=== PATIENT | female | born 1975 | race Caucasian/White ===

== ENCOUNTER → 2016-06-05 | Outpatient (CLI) | payer OTHER ==
--- NOTE | 2016-06-05 16:22 | US ---
EXAMINATION TYPE: US thyroid st tissue head/neck DATE OF EXAM: 06/05/2016 3:34 PM COMPARISON: 07/21/2015 CLINICAL HISTORY: 40-year-old female C73 Malignant neoplasm of thyroid gland. Left lobe surgically re moved in 2010; known right nodules. TECHNIQUE: Multiple sonographic images of the thyroid gland are obtained. FINDINGS: GLAND SIZE: Right Lobe: 5.7 x 1.4 x 2.0 cm Overall Parenchyma: homogenous Left Lobe: Surgically absent Isthmus: Surgically absent NODULES RIGHT: # of nodules measured on right: 2 1. 0.5 x 0.4 x 0.5cm isoechoic solid nodule at the lower pole posteriorly blends with surrounding tis carlos. This nodule is wider than tall and shows some peripheral vascularity. prior size: 0.6 x 0.5 x 0.6 cm 2. 0.4 X 0.2 x 0.3 cm small hypoechoic nodule at the upper pole anteriorly with well-defined margins . This nodule is wider than tall and shows no intranodular vascularity. Prior size: no seen on prior scan Bilateral neck scanned, no abnormal lymphadenopathy noted. IMPRESSION: 1. Status post left thyroidectomy. 2. An isoechoic 5 mm solid nodule at the right lower pole is stable. 3. Tiny 4 mm circumscribed nodule in the right upper lobe is new. Follow-up as indicated.
[2016-06-06 15:06] LABS: Mis test requested (Blood) Thyroglobulin Ab Pnl
== END ==
LOC: RADUSWWP 15:11
PROVIDERS: ATTEND Internal Medicine Endocrinology, Diabetes & Metabolism
DX: C73 Malignant neoplasm of thyroid gland (principal); E04.2 Nontoxic multinodular goiter; E89.0 Postprocedural hypothyroidism; E04.1 Nontoxic single thyroid nodule
CPT/HCPCS: 76536; 84432; 84439; 84443; 86800

== ENCOUNTER → 2017-07-16 | Outpatient (CLI) | payer OTHER ==
[2017-07-16 14:37] LABS: T4, Free (Free Thyroxine) 1.44 ng/dL (0.78-2.19)
[2017-07-16 20:50] LABS: Thyroglobulin 9.35 ng/mL (1.60-59.90)
== END | disposition home or self-care (01) ==
LOC: LABWHC1 13:37
PROVIDERS: ATTEND Internal Medicine Endocrinology, Diabetes & Metabolism
DX: C73 Malignant neoplasm of thyroid gland (principal); E04.1 Nontoxic single thyroid nodule
CPT/HCPCS: 36415; 84432; 84439; 84443; 86800

== ENCOUNTER → 2017-09-24 | Outpatient (CLI) | payer OTHER ==
--- NOTE | 2017-09-24 15:26 | US ---
EXAMINATION TYPE: US thyroid st tissue head/neck DATE OF EXAM: 09/24/2017 COMPARISON: CLINICAL HISTORY: C73 thyroid cancer. Hx of thyroid cancer with left lobe removed. Hx of right thyro id nodules. GLAND SIZE: Right Lobe: 4.9 x 2.0 x 1.3 cm Overall Parenchyma: homogenous Left Lobe: Surgically absent Isthmus Thickness: Surgically absent NODULES RIGHT: # of nodules measured on right: 2 1. 0.6 X 0.5 x 0.5 cm isoechoic solid nodule at the lower pole with well-defined margins. This nod ule is taller than wide and shows intranodular vascularity. This is isoechoic Prior size: 0.5 x 0.4 x 0.5 cm 2. 0.4 X 0.4 x 0.3 cm hypoechoic nodule at the upper pole with well-defined margins. This nodule is taller than wide and shows no intranodular vascularity. This is hypoechoic Prior size: 0.4 x 0.2 x 0.3 cm Bilateral neck scanned. Left lymph node appearing lesion seen - 2.3 x 1.1 x 0.6 cm. IMPRESSION: Stable right lobe thyroid subcentimeter thyroid nodules.
== END | disposition home or self-care (01) ==
LOC: RADUSWWP 13:52
PROVIDERS: ATTEND Internal Medicine Endocrinology, Diabetes & Metabolism
DX: E04.2 Nontoxic multinodular goiter (principal)
CPT/HCPCS: 76536

== ENCOUNTER → 2017-10-28 | Outpatient (CLI) | payer OTHER ==
[2017-10-28 14:38] LABS: T4, Free (Free Thyroxine) 1.33 ng/dL (0.78-2.19)
[2017-10-28 19:59] LABS: Thyroglobulin 9.88 ng/mL (1.60-59.90)
== END | disposition home or self-care (01) ==
LOC: LABWHC1 13:40
PROVIDERS: ATTEND Internal Medicine Endocrinology, Diabetes & Metabolism
DX: C73 Malignant neoplasm of thyroid gland (principal)
CPT/HCPCS: 36415; 84432; 84439; 84443; 86800

== ENCOUNTER → 2019-01-20 | Outpatient (CLI) | payer OTHER ==
--- NOTE | 2019-01-20 08:09 | US ---
EXAMINATION TYPE: US thyroid st tissue head/neck DATE OF EXAM: 01/20/2019 COMPARISON: US CLINICAL HISTORY: C73 Malignant neoplasm of thyroid gland. F/U, left thyroid gland removed GLAND SIZE: Right Lobe: 5.0 x 1.6 x 2.0 cm Overall Parenchyma: homogenous Left Lobe: Surgically absent Isthmus Thickness: 0.4 cm NODULES RIGHT: # of nodules measured on right: 1. 0.7 X 0.7 x 0.6 cm hypoechoic solid nodule at the lower pole with well-defined margins; This no dule is wider than tall and shows intranodular vascularity. Prior size: 0.6 x 0.5 x 0.5 cm Bilateral neck scanned, no evidence of lymphadenopathy. Single sub-centimeter nodule right thyroid. IMPRESSION: 1. Stable subcentimeter nodule right lobe thyroid
[2019-01-20 09:23] LABS: T4, Free (Free Thyroxine) 1.31 ng/dL (0.78-2.19)
== END | disposition home or self-care (01) ==
LOC: RADUSWWP 07:44
PROVIDERS: ATTEND Internal Medicine
DX: C73 Malignant neoplasm of thyroid gland (principal); E04.1 Nontoxic single thyroid nodule
CPT/HCPCS: 76536; 84432; 84439; 84443; 86800

== ENCOUNTER → 2020-01-28 | Outpatient (CLI) | payer OTHER | END | disposition home or self-care (01) | LOC: LABWHC1 12:09 | PROVIDERS: ATTEND Internal Medicine | DX: C73 Malignant neoplasm of thyroid gland (principal); E03.9 Hypothyroidism, unspecified | CPT/HCPCS: 36415; 84432; 84439; 84443; 86800 ==

== ENCOUNTER → 2020-09-29 | Outpatient (CLI) | payer OTHER ==
--- NOTE | 2020-09-29 15:59 | USB ---
EXAMINATION TYPE: US breast limited BILAT DATE OF EXAM: 09/29/2020 COMPARISON: Mammogram same date CLINICAL HISTORY: N63 LUMP/MASS. Findings: The right breast was scanned with ultrasound from 6-9 o'clock and in the retroareolar region and righ t axillary tail. The left breast was scanned with ultrasound from 3-6 o'clock and in the retroareolar region and axillary tail. Multiple bilateral simple, complicated and clustered cysts are noted and presumed benign due to the r ule of multiplicity and bilaterality. IMPRESSION: No sonographic evidence for malignancy. Clinical follow-up is recommended for palpable abnormalities. BI-RADS 2, benign. Screening mammogram is recommended in one year.
--- NOTE | 2020-10-02 08:22 | MM ---
Reason for exam: additional evaluation requested from prior study. Last mammogram was performed 5 years and 8 months ago. History: Patient has history of other cancer at age 35 and is nulliparous. Family history of breast cancer in maternal aunt at age 42. Took hormonal contraceptives for 10 years beginning at age 19. Physical Findings: Nurse Summary:1-1.5cm nodule in the right breast at 6 o'clock and a 1cm nodule in the left breast at 4 o'clock (nurse db). MG 3D Diag Mammo W/Cad ENRIQUE Bilateral CC and MLO view(s) were taken. Prior study comparison: February 02, 2015, right breast MG 3d work up w/cad RT. January 23, 2015, bilateral MG screening mammo w CAD. The breast tissue is heterogeneously dense. This may lower the sensitivity of mammography. Bilateral well circumscribed densities bilaterally area consistent with cystic changes and some correlate with palpables. Bilateral ultrasound recommended for palpables. These results were verbally communicated with the patient and result sheet given to the patient on 09/29/20. ASSESSMENT: Incomplete: need additional imaging evaluation, BI-RAD 0 RECOMMENDATION: Ultrasound of both breasts.
== END | disposition home or self-care (01) ==
LOC: RADMAMWWP 14:34
PROVIDERS: ATTEND Family Medicine
DX: R92.2 Inconclusive mammogram (principal); N63.10 Unspecified lump in the right breast, unspecified quadrant; N63.20 Unspecified lump in the left breast, unspecified quadrant; Z80.3 Family history of malignant neoplasm of breast
CPT/HCPCS: 77062; 77066

== ENCOUNTER → 2021-01-31 | Outpatient (CLI) | payer BC ==
--- NOTE | 2021-01-31 15:18 | US ---
EXAMINATION TYPE: US thyroid st tissue head/neck DATE OF EXAM: 01/31/2021 COMPARISON: 01/20/2019 CLINICAL HISTORY: E04.1 THYROID NODULE. follow up thyroid nodule. left thyroidectomy 2010 GLAND SIZE: Right Lobe: 4.8 x 1.7 x 2.0cm Overall Parenchyma: homogenous Left Lobe: Surgically absent Isthmus Thickness: 0.3 cm NODULES RIGHT: # of nodules measured on right: 1 1. 0.8 X 0.5 x 0.7 cm, lower , solid, hyperechoic nodule, which is wider than tall, with smooth mar gins, without echogenic foci. This is stable. TR 3 Prior size: 0.7 x 0.7 x 0.6 cm LEFT: # of nodules measured on left: 0. ISTHMUS: # of nodules measured in the isthmus: 0 Bilateral neck scanned, no evidence of lymphadenopathy. IMPRESSION: Mildly suspicious subcentimeter nodule right lobe thyroid. 2017 ACR TI-RADS LEVEL: TR-RADS 3 - Mildly Suspicious: Follow if > 1.5 cm, FNA if > 2.5 cm *Highest TI-RADS level nodule reported
[2021-01-31 16:06] LABS: T4, Free (Free Thyroxine) 1.41 ng/dL (0.78-2.19)
== END | disposition home or self-care (01) ==
LOC: RADUSWWP 14:37
PROVIDERS: ATTEND Internal Medicine
DX: E04.1 Nontoxic single thyroid nodule (principal)
CPT/HCPCS: 76536; 84432; 84439; 84443; 86800

== ENCOUNTER → 2022-04-24 | Outpatient (CLI) | payer BC ==
--- NOTE | 2022-04-25 08:32 | MM ---
Reason for Exam: Screening (asymptomatic). Last mammogram was performed 1 year(s) and 7 month(s) ago. Patient History: Menarche at age 12. Patient has no children. Other cancer, age 35. Hormonal Contraceptives for 10 years from age 19 until age 28. Maternal aunt had breast cancer, age 42. Last menstrual period: 04/07/2022 Risk Values: Patricia 5 year model risk: 0.9%. NCI Lifetime model risk: 10.5%. Prior Study Comparison: 01/23/2015 Bilateral Screening Mammogram, [facility]. 02/02/2015 Right Diagnostic Mammogram, [facility]. 09/29/2020 Bilateral Diagnostic Mammogram, [facility]. Tissue Density: The breast tissue is heterogeneously dense. This may lower the sensitivity of mammography. Findings: Analyzed By CAD. Stable appearing cysts. There is no suspicious group of microcalcifications or new suspicious mass in either breast. Overall Assessment: Benign, BI-RAD 2 Management: Screening Mammogram of both breasts in 1 year. A clinical breast exam by your physician is recommended on an annual basis and results should be correlated with mammographic findings. [facility] will attempt to contact patient to return for supplemental views and ultrasound if indicated. Electronically signed and approved by: Jamir Sellers DO
== END | disposition home or self-care (01) ==
LOC: RADMAMWWP 07:41
PROVIDERS: ATTEND Family Medicine
DX: Z12.31 Encounter for screening mammogram for malignant neoplasm of breast (principal); Z80.3 Family history of malignant neoplasm of breast
CPT/HCPCS: 77067

== ENCOUNTER → 2023-05-19 | Outpatient (CLI) | payer BC ==
--- NOTE | 2023-05-20 12:33 | US ---
EXAMINATION TYPE: US thyroid st tissue head/neck DATE OF EXAM: 05/19/2023 COMPARISON: Multiple, most recent 01/31/2021 CLINICAL INDICATION: Female, 47 years old with history of C73 MALIGNANT NEOPLASM OF THYROID GLAND; Pa tient denies any changes from last exam GLAND SIZE: Right Lobe: 5.0 x 1.8 x 1.9 cm Overall Parenchyma: homogeneous Left Lobe: Surgically absent Isthmus Thickness: 0.2 cm NODULES RIGHT: # of nodules measured on right: 1 1. 1.0 X 0.6 x 0.8 cm, lower medial, solid or almost completely solid, isoechoic nodule, which is w ider than tall, with smooth margins, without echogenic foci. Prior size: 0.8 x 0.5 x 0.7 cm LEFT: # of nodules measured on left: 0 ISTHMUS: # of nodules measured in the isthmus: 0 Quality Management Nurse notes: Bilateral neck scanned, hypoechoic rounded lymph nodes left lateral neck. Largest 1.1 cm wide. IMPRESSION: 1. Status post left thyroidectomy. 2. A solitary 1 cm TR 3 nodule in the right lobe previously measuring 8 mm. 3. The practice management consultant indicates lymph nodes along the left lateral neck measuring up to 1.1 cm. Probably normal or reactive/post inflammatory. Short interval follow-up can be considered. 2017 ACR TI-RADS LEVEL: TR-RADS 3 - Mildly Suspicious: Follow if > 1.5 cm, FNA if > 2.5 cm *Highest TI-RADS level nodule reported
== END | disposition home or self-care (01) ==
LOC: RADUSWWP 15:21
PROVIDERS: ATTEND Internal Medicine
DX: C73 Malignant neoplasm of thyroid gland (principal); R91.1 Solitary pulmonary nodule; Z98.890 Other specified postprocedural states
CPT/HCPCS: 76536

== ENCOUNTER → 2023-05-19 | Outpatient (CLI) | payer BC ==
--- NOTE | 2023-05-20 09:12 | MM ---
Reason for Exam: Screening (asymptomatic). Last mammogram was performed 1 year(s) and 1 month(s) ago. Patient History: Menarche at age 12. Patient has no children. Hormonal Contraceptives for 10 years from age 19 until age 28. Maternal aunt had breast cancer, age 42. Risk Values: Patricia 5 year model risk: 1.0%. NCI Lifetime model risk: 10.3%. Prior Study Comparison: 02/02/2015 Right Diagnostic Mammogram, [facility]. 09/29/2020 Bilateral Diagnostic Mammogram, [facility]. 04/24/2022 Bilateral MG screening mammo w CAD, [facility]. Tissue Density: The breast tissue is heterogeneously dense. This may lower the sensitivity of mammography. Findings: Analyzed By CAD. Right breast, asymmetry 9.1 cm nipple on MLO view. Left breast, There is no suspicious group of microcalcifications or new suspicious mass. Overall Assessment: Incomplete: need additional imaging evaluation, BI-RAD 0 Management: Diagnostic Mammogram of the right breast. Compression imaging upper outer aspect MLO view. [facility] will attempt to contact patient to return for supplemental views and ultrasound if indicated. Patient should continue monthly self-breast exams. A clinical breast exam by your physician is recommended on an annual basis. This exam should not preclude additional follow-up of suspicious palpable abnormalities. Note on Patricia scores and lifetime risk: 1. A Patricia score greater than 3% is considered moderate risk. If this is the case, consider specialist referral to assess eligibility for a risk reducing agent. 2. If overall lifetime risk for the development of breast cancer is 20% or higher, the patient may qualify for future screening with alternating mammogram and breast MRI. Electronically signed and approved by: Jamir Sellers DO
== END | disposition home or self-care (01) ==
LOC: RADMAMWWP 15:24
PROVIDERS: ATTEND Family Medicine
DX: Z12.31 Encounter for screening mammogram for malignant neoplasm of breast (principal); Z80.3 Family history of malignant neoplasm of breast
CPT/HCPCS: 77067

== ENCOUNTER → 2023-05-21 | Outpatient (CLI) | payer BC ==
--- NOTE | 2023-05-21 07:58 | MM ---
Reason for Exam: Additional evaluation requested from abnormal screening. Last screening mammogram was performed less than 1 month ago. Patient History: Menarche at age 12. Patient has no children. Hormonal Contraceptives for 10 years from age 19 until age 28. Maternal aunt had breast cancer, age 42. Risk Values: Patricia 5 year model risk: 1.0%. NCI Lifetime model risk: 10.3%. Prior Study Comparison: 06/20/2010 Bilateral Diagnostic Ultrasound, [facility]. 06/26/2011 Bilateral Diagnostic Mammogram, [facility]. 06/26/2011 Right Diagnostic Ultrasound, [facility]. 07/01/2012 Bilateral Diagnostic Mammogram, [facility]. 01/23/2015 Bilateral Screening Mammogram, [facility]. 02/02/2015 Right Diagnostic Mammogram, [facility]. 02/02/2015 Right Diagnostic Ultrasound, [facility]. 09/29/2020 Bilateral Diagnostic Mammogram, [facility]. 09/29/2020 Bilateral Diagnostic Ultrasound, [facility]. 04/24/2022 Bilateral MG screening mammo w CAD, [facility]. 05/19/2023 Bilateral MG screening mammo w CAD, [facility]. Tissue Density: Right: The breast tissue is heterogeneously dense. This may lower the sensitivity of mammography. Findings: Analyzed By CAD. There is a chronic underlying nodularity. Asymmetric density far posterior superior on the MLO view and incompletely disperses on spot view, possibly corresponding to a 1 cm area of nodularity 12 to 1:00 position. Further ultrasound evaluation is recommended. Overall Assessment: Incomplete: need additional imaging evaluation, BI-RAD 0 Management: Diagnostic Breast Ultrasound of the right breast. Electronically signed and approved by: Caity James M.D. Radiologist
--- NOTE | 2023-05-21 08:43 | USB ---
Reason for Exam: Additional evaluation requested from abnormal screening. Patient History: Menarche at age 12. Patient has no children. Hormonal Contraceptives for 10 years from age 19 until age 28. Maternal aunt had breast cancer, age 42. Risk Values: Patricia 5 year model risk: 1.0%. NCI Lifetime model risk: 10.3%. Technique: Method: Targeted. Prior Study Comparison: 09/29/2020 Bilateral Diagnostic Mammogram, [facility]. 04/24/2022 Bilateral MG screening mammo w CAD, [facility]. 05/19/2023 Bilateral MG screening mammo w CAD, [facility]. Findings: The upper section of the breast of the right breast, the axilla of the right breast and the retroareolar of the right breast were scanned. Targeted ultrasound superior aspect of the right breast 9:00 to 2:00 including scanning of the subareolar region and axilla. There is a large benign 3.2 x 2.0 x 1.2 cm cyst at the 9:00 position, 2 cm from the nipple. No other solid or cystic lesion or axillary lymphadenopathy seen. Overall Assessment: Probably benign, BI-RAD 3 Management: Diagnostic Mammogram of the right breast in 6 months. A clinical breast exam by your physician is recommended on an annual basis and results should be correlated with mammographic findings. This exam should not preclude additional follow-up of suspicious palpable abnormalities. Results were given to the patient verbally at the time of exam. Electronically signed and approved by: Caity James M.D. Radiologist
== END | disposition home or self-care (01) ==
LOC: RADMAMWWP 07:29
PROVIDERS: ATTEND Family Medicine
DX: R92.331 Mammographic heterogeneous density, right breast (principal); Z80.3 Family history of malignant neoplasm of breast
CPT/HCPCS: 77061; 77065

== ENCOUNTER → 2023-05-28 | Outpatient (CLI) | payer BC ==
[2023-05-28 19:00] LABS: T4, Free (Free Thyroxine) 1.61 ng/dL (0.80-1.80)
== END | disposition home or self-care (01) ==
LOC: LABWHC1 13:49
PROVIDERS: ATTEND Internal Medicine
DX: C73 Malignant neoplasm of thyroid gland (principal); E89.0 Postprocedural hypothyroidism
CPT/HCPCS: 36415; 84432; 84439; 84443; 86800

== ENCOUNTER → 2024-01-28 | Outpatient (CLI) | payer BC ==
[2024-01-28 10:42] LABS: HCT 39.5 % (37.2-46.3); HGB 12.8 g/dL (12.0-15.0); MCH 28.4 pg (27.0-32.0); MCHC 32.4 g/dL (32.0-37.0); MCV 87.6 FL (80.0-97.0); Mean Platelet Volume 9.2 FL (9.5-12.2); NRBC Per 100 WBC 0 X 10*3/uL (0.00-0.01); Platelet Count 233 X 10*3/uL (140-440); RBC 4.51 X 10*6/uL (4.10-5.20); RDW 12.4 % (11.5-14.5); WBC 6.03 X 10*3/uL (4.50-10.00)
[2024-01-28 10:52] LABS: ALT 17 U/L (8-44); AST 22 U/L (13-35); Albumin 4.1 g/dL (3.8-4.9); Albumin/Globulin Ratio 2.05 Ratio (1.60-3.17); Alkaline Phosphatase 77 U/L (41-126); BUN/Creat Ratio 16.86 Ratio (12.00-20.00); Blood Urea Nitrogen 11.8 mg/dL (9.0-27.0); Calcium 8.9 mg/dL (8.7-10.3); Carbon Dioxide 23.6 mmol/L (21.6-31.8); Chloride 107 mmol/L (96-109); Chol/HDL Ratio 2.82 Ratio; Glucose 92 mg/dL (70-110); LDL Cholesterol,Calculated 89.8 mg/dL (0.0-131.0); Potassium 4.3 mmol/L (3.5-5.5); Sodium 140 mmol/L (135-145); Total Bilirubin 0.5 mg/dL (0.3-1.2); Total Protein 6.1 g/dL (6.2-8.2); VLDL Calculation 14.68 mg/dL (5.00-40.00)
== END | disposition home or self-care (01) ==
LOC: LABWHC1 07:13
PROVIDERS: ATTEND Physician Assistant Medical
CPT/HCPCS: 36415; 80053; 80061; 83036; 85027

== ENCOUNTER → 2024-10-25 | Outpatient (CLI) | payer BC ==
--- NOTE | 2024-10-25 13:15 | MM ---
Reason for Exam: Additional evaluation requested from prior study. Last mammogram was performed 1 year(s) and 5 month(s) ago. Patient History: Menarche at age 12. Patient has no children. Premenopausal. Hormonal Contraceptives for 10 years from age 19 until age 28. Maternal aunt had breast cancer, age 42. Risk Values: Patricia 5 year model risk: 1.0%. NCI Lifetime model risk: 10.0%. Prior Study Comparison: 01/23/2015 Bilateral Screening Mammogram, [facility]. 02/02/2015 Right Diagnostic Mammogram, [facility]. 09/29/2020 Bilateral Diagnostic Mammogram, [facility]. 04/24/2022 Bilateral MG screening mammo w CAD, [facility]. 05/19/2023 Bilateral MG screening mammo w CAD, [facility]. 05/21/2023 Right MG 3D work up w/cad RT, [facility]. Tissue Density: The breasts are heterogeneously dense, which may obscure small masses. Findings: Analyzed By CAD. Left: Left breast upper outer quadrant 25 mm 9 cm nipple posterior nipple line new mass. Additional benign-appearing stable masses. Right: No new suspicious masses, calcifications or distortions. Benign-appearing stable masses. Overall Assessment: Incomplete: need additional imaging evaluation, BI-RAD 0 Management: Diagnostic Breast Ultrasound of the left breast. Results were given to the patient verbally at the time of exam. Patient should continue monthly self-breast exams. A clinical breast exam by your physician is recommended on an annual basis. This exam should not preclude additional follow-up of suspicious palpable abnormalities. Note on Patricia scores and lifetime risk: 1. A Patricia score greater than 3% is considered moderate risk. If this is the case, consider specialist referral to assess eligibility for a risk reducing agent. 2. If overall lifetime risk for the development of breast cancer is 20% or higher, the patient may qualify for future screening with alternating mammogram and breast MRI. [facility], , 10/25/2024 1:12 PM. Electronically signed and approved by: Jamir Sellers DO
--- NOTE | 2024-10-25 13:40 | USB ---
Reason for Exam: Clinical finding. Patient History: Menarche at age 12. Patient has no children. Premenopausal. Hormonal Contraceptives for 10 years from age 19 until age 28. Maternal aunt had breast cancer, age 42. Risk Values: Patricia 5 year model risk: 1.0%. NCI Lifetime model risk: 10.0%. Technique: Method: Targeted. Prior Study Comparison: 04/24/2022 Bilateral MG screening mammo w CAD, [facility]. 05/19/2023 Bilateral MG screening mammo w CAD, [facility]. 05/21/2023 Right MG 3D work up w/cad RT, [facility]. Findings: The upper outer quadrant of the left breast, the axilla of the left breast and the retroareolar of the left breast were scanned. Technique utilized:US breast limited LT Image; Ultrasound imaging of: Area of concern, retroareolar region and axilla. Multiple cystic lesions are seen including interval increase in size lesion at 2:00 9 cm nipple measuring up to 28 x 13 x 28 mm. No suspicious solid masses. Overall Assessment: Benign, BI-RAD 2 Management: Screening Mammogram of both breasts in 1 year. A clinical breast exam by your physician is recommended on an annual basis and results should be correlated with mammographic findings. This exam should not preclude additional follow-up of suspicious palpable abnormalities. Results were given to the patient verbally at the time of exam. [facility], , 10/25/2024 1:37 PM. Electronically signed and approved by: Jamir Sellers DO
== END | disposition home or self-care (01) ==
LOC: RADMAMWWP 12:34
PROVIDERS: ATTEND Family Medicine
DX: R92.8 Other abnormal and inconclusive findings on diagnostic imaging of breast (principal); R92.333 Mammographic heterogeneous density, bilateral breasts; Z80.3 Family history of malignant neoplasm of breast; Z92.0 Personal history of contraception
CPT/HCPCS: 77062; 77066